=== PATIENT | male | born 1965 | race Caucasian/White ===

== ENCOUNTER 2019-01-26 11:18 | Day surgery (SDC) | payer OTHER ==
[~2019-01-26] VITALS: Ht 188 cm; Wt 106.2 kg
[2019-01-26] VITALS (17 sets, daily range): BP systolic 102–142; BP diastolic 58–82; PULSE 63–82; RESP 15–18; Ht 188 cm; Wt 106.2 kg
[2019-01-26] MEDS ORDERED: LACTATED RINGER'S 1,000 ML IV SCH (13:00)
--- NOTE | 2019-01-26 14:05 | PREAC ---
Date/Time of Note Date/Time of Note DATE: 01/26/19 TIME: 14:04 Anesthesia Eval and Record Evaluation Time Pre-Procedure Interview DATE: 01/26/19 TIME: 14:04 Age 53 Sex male NPO: 8 hrs Preoperative diagnosis left knee meniscal tear Planned procedure left knee arthroscopy and meniscectomy Past Medical History Past Medical History: Includes Cardio: Dyslipidemia GI: Obesity Surgery & Anesthesia Issues No known issue Meds Anticoagulation: No Beta Zak within 24 hr: No Reason Beta Zak not given: Pt. not on B-Zak Current Medications Lactated Ringer's 1,000 ml @ 30 mls/hr Q24H IV ; Start 01/26/19 at 13:00 Meds reviewed: Yes Allergies Coded Allergies: No Known Allergy (Unverified , 01/26/19) Allergies Reviewed: Yes Labs/Studies Labs Reviewed: Reviewed by anesthesiologist Blood Bank Test 01/26/19 12:20 Antibody Screen NEGATIVE Blood Type A POSITIVE test: N/A Studies: ECG, CXR Pre-procedure Exam Last vitals Vital Signs Date Temp Pulse Resp B/P (MAP) Pulse Ox O2 O2 Flow FiO2 Time Delivery Rate 01/26/19 97.2 77 16 102/70 99 Room Air 12:55 (81) Airway: Adequate mouth opening, Adequate thyromental dist Mallampati: Mallampati II Teeth: Normal Lung: Normal Heart: Normal ASA Physical Status ASA physical status: 2 Emergency: None Planned Anesthetic General/MAC: LMA Planned Pain Management Parenteral pain med Pre-operative Attestations Prior to commencing anesthesia and surgery, the patient was re-evaluated, there was verification of: *The patient's identity *The results of appropriate recent lab work and preoperative vital signs *The above evaluation not changing prior to induction *Anesthetic plan, risk benefits, alternative and complications discussed with patient/family; questions answered; patient/family understands, accepts and wishes to proceed. BIANKA UMANZOR January 26, 2019 14:05
[2019-01-26] MEDS ORDERED: ROPIVACAINE 0.5 % 30 ML VIAL ONE (14:10)
[2019-01-26] MEDS ORDERED: ROCURONIUM 50 MG INJ ONE (14:12)
[2019-01-26] MEDS ORDERED: PROPOFOL 20 ML ONE (14:12)
[2019-01-26] MEDS ORDERED: LIDOCAINE 2% (SDV) 5 ML INJ ONE (14:12)
--- NOTE | 2019-01-26 14:15 | HPN ---
Date/Time of Note Date/Time of Note DATE: 01/26/19 TIME: 14:15 Interval H&P Admission Note Pt. seen H&P reviewed: No system changes DARÍO ARROYO MD January 26, 2019 14:15
[2019-01-26] MEDS ORDERED: EPINEPHrine 1 MG/ML 30 ML INJ ZFS ONE (14:30)
[2019-01-26] MEDS ORDERED: DEXAMETHASONE 4 MG/ML 5 ML INJ ONE (14:40)
[2019-01-26] MEDS ORDERED: ONDANSETRON 4 MG INJ ONE (14:41)
[2019-01-26] MEDS ORDERED: NEOSTIGMINE 3 MG/3 ML SYRINGE ONE (15:28)
[2019-01-26] MEDS ORDERED: GLYCOPYRROLATE 0.4 MG INJ ONE (15:29)
--- NOTE | 2019-01-26 15:38 | OPR ---
Date/Time of Note Date/Time of Note DATE: 01/26/19 TIME: 15:33 Operative Report Preoperative Diagnosis Left knee medial and lateral meniscus tears Left knee osteoarthritis Postoperative Diagnosis Same Operation/Procedure Performed 1. Left knee arthroscopy partial medial and lateral meniscectomy 2. Abrasion chondroplasty left knee medial and lateral tibial articular surfaces Surgeon see signature line Machine Featheredger And Reducer None Anesthesia Type: general Estimated Blood Loss: minimal Transfusion none Specimen None Grafts/Implants none Complications none Pt Condition Post Procedure: stable Disposition: PACU Indications This is a 53-year-old male who has had progressive pain in his left knee. He has failed nonoperative treatment. He now presents with the valgus or procedure. I did discuss with the patient that he has osteoarthritis in his left knee that he may not notice full resolution of his symptoms. I also discussed that he may have worsening of his symptoms due to the underlying osteoarthritis. Patient does understand he wanted to proceed with operative treatment. Procedure Description The patient's correct extremity was identified in the preoperative area he was brought back to the operating room he had preoperative antibiotics for general surgical anesthesia left lower extremity was prepped and draped in standard sterile manner. Timeout was performed. I then made standard medial lateral portal incision is discussed going to the lateral portal to her first turned my attention medial compartment there was significant chondrocalcinosis of the medial meniscus along with a degenerative tear along the posterior horn and body of the medial meniscus. This was carefully debrided back to stable rim the articular surface on the tibial side also had some loose hanging tissue which is carefully debrided them and in the lateral compartment there was significant degeneration of the entire lateral compartment including the articular surface on the tibial side as well as the entire meniscus the meniscus was carefully debrided back to stable rim. There was significant chondrocalcinosis of the remaining meniscus but no tears were left I then sucked up all the loose fragments that shaver to smooth out the remaining rim of the ArthroWand did abrasion chondroplasty of the tibial articular surface using a shaver. The patellofemoral articulation did not have any chondromalacia. At this point I thoroughly irrigated the knee closed the portal sites with 3-0 nylon and injected the knee joint with ropivacaine 1% plain 10 cc. Dry sterile dressings applied patient the tourniquet was then deflated the patient was then extubated and transported to recovery in stable condition. DARÍO ARROYO MD January 26, 2019 15:38
--- NOTE | 2019-01-26 15:39 | PAC ---
Date/Time of Note Date/Time of Note DATE: 01/26/19 TIME: 15:39 Post-Anesthesia Notes Post-Anesthesia Note Last documented vital signs Vital Signs Date Temp Pulse Resp B/P (MAP) Pulse Ox O2 O2 Flow FiO2 Time Delivery Rate 01/26/19 97.2 77 16 102/70 99 Room Air 1538 (81) Activity: WNL Respiratory function: WNL Cardiovascular function: WNL Mental status: Baseline Pain reasonably controlled: Yes Hydration appropriate: Yes Nausea/Vomiting absent: Yes BIANKA UMANZOR January 26, 2019 15:39
[2019-01-26] MEDS ORDERED: MEPERIDINE 25 MG INJ ONE (15:43)
[2019-01-26] MEDS ORDERED: HYDROmorphONE 1 MG/5 ML IV SYRINGE IV ONE (15:43)
[2019-01-26] MEDS ORDERED: FENTAnyl 50 MCG/ML VIAL ONE (15:43)
[2019-01-26] MEDS ORDERED: HYDROCODONE/APAP (5/325) TAB PO PRN ×2 (16:00)
[2019-01-26] MEDS ORDERED: FENTAnyl 50 MCG/ML VIAL IV PRN ×3 (16:00)
[2019-01-26] MEDS ORDERED: morphine 10 MG INJ IV PRN (16:00)
[2019-01-26] MEDS ORDERED: LABETALOL HCL 20MG INJ IV PRN (16:00)
[2019-01-26] MEDS ORDERED: MIDAZOLAM 1 MG/ML 2 ML INJ IV PRN (16:00)
[2019-01-26] MEDS ORDERED: KETOROLAC 30 MG INJ IV PRN (16:00)
[2019-01-26] MEDS ORDERED: DIPHENHYDRAMINE 50 MG INJ IV PRN (16:00)
[2019-01-26] MEDS ORDERED: HYDROmorphONE 1 MG/5 ML IV SYRINGE IV PRN ×3 (16:00)
[2019-01-26] MEDS ORDERED: hydrALAzine 20 MG INJ IV PRN (16:00)
[2019-01-26] MEDS ORDERED: ALBUTEROL 0.083% (NEB) 2.5 MG/3 ML AMP HHN PRN (16:00)
[2019-01-26] MEDS ORDERED: ONDANSETRON 4 MG INJ IV PRN ×2 (16:00)
[2019-01-26] MEDS ORDERED: MEPERIDINE 25 MG INJ IV PRN (16:00)
[2019-01-26] MEDS ORDERED: EPHEDrine 25 MG/5 ML SYG IV PRN (16:00)
== END 2019-01-26 18:00 | disposition home or self-care (01) ==
LOC: SDS 11:18
PROVIDERS: ATTEND Specialist
DX: S83.242A Other tear of medial meniscus, current injury, left knee, initial encounter (principal); S83.282A Other tear of lateral meniscus, current injury, left knee, initial encounter; M17.12 Unilateral primary osteoarthritis, left knee; E78.5 Hyperlipidemia, unspecified; E66.9 Obesity, unspecified; X58.XXXA Exposure to other specified factors, initial encounter; Y93.89 Activity, other specified; Y92.89 Other specified places as the place of occurrence of the external cause; Y99.8 Other external cause status
CPT/HCPCS: 29880; 86850; 86900; 86901; J0171; J1100; J1170; J2175; J2405; J2710; J2795; J3010